=== PATIENT | female | born 1985 | race Caucasian/White ===

== ENCOUNTER → 2016-05-04 | Outpatient (CLI) | payer BC ==
[2016-05-04 10:54] LABS: CHLORIDE,CL 104 mmol/L (98-110); SODIUM,NA 138 mmol/L (136-146)
== END ==
LOC: MW.CHIM 10:16
PROVIDERS: ATTEND Internal Medicine
DX: E10.9 Type 1 diabetes mellitus without complications (principal); E03.9 Hypothyroidism, unspecified
CPT/HCPCS: 36415; 80048; 80061; 83036; 84443; 85025

== ENCOUNTER → 2016-07-19 | Outpatient (CLI) | payer BC | LOC: MW.CHOBGYN 14:42 | PROVIDERS: ATTEND Advanced Practice Midwife | DX: Z32.00 Encounter for pregnancy test, result unknown (principal) | CPT/HCPCS: 36415; 84702 ==

== ENCOUNTER 2016-09-30 18:38 | Emergency (ER) | payer BC ==
--- NOTE | 2016-09-30 19:37 | EDM.PDOC ---
ED HPI GENERAL MEDICAL PROBLEM - General Chief Complaint: Upper Extremity Injury/Pain Stated Complaint: PT HURT LT WRIST Time Seen by Provider: 09/30/16 18:59 Source of Information: Reports: Patient History Limitations: Reports: No Limitations - History of Present Illness INITIAL COMMENTS - FREE TEXT/NARRATIVE: HISTORY AND PHYSICAL: [] 30-year-old female presenting with pain to her left hand and wrist History of Present Illness: []She fell today and landed on her left hand. She is having enough pain that is not resolving. She is 16 weeks . Denies any loss of consciousness or other areas of pain. Review of Systems: As per history of present illness and below otherwise all systems reviewed and negative. Past medical history: As per history of present illness and as reviewed below otherwise noncontributory. Surgical history: As per history of present illness and as reviewed below otherwise noncontributory. Social history: No reported history of drug or alcohol abuse. Family history: As per history of present illness and as reviewed below otherwise noncontributory. Physical exam: Alert and oriented female in no loss of consciousness answering questions appropriately. HEENT: Atraumatic, normocehpalic, pupils reactive, negative for conjunctival pallor or scleral icterus, mucous membranes moist, throat clear, neck supple, nontender, trachea midline. Lungs: Clear to auscultation, breath sounds equal bilaterally, chest non tender. Heart: S1S2, regular, negative for clicks, rubs, or JVD. Abdomen: Soft, nondistended, nontender. Negative for masses or hepatossplenmegaly. Negative for costovertebral tenderness. 16 weeks with heart tones of 160 Pelvis: Stable nontender. Genitourinary: Deferred. Rectal: Deferred Extremities: Atraumatic, negative for cords or calf pain. Pain noted to the fifth meta-carpal/phalanx of the left hand. x-ray showing minimally displaced fracture to the fifth phalanx Neurovascular unremarkable. Neuro: Awake, alert, oriented. Cranial nerves II through XII unremarkable. Cerebellum unremarkable. Motor and sensory unremarkable throughout. Exam nonfocal. Diagnostics: [X-ray of left hand shows minimally displaced distal phalanx fracture] Therapeutics: [Splint] Impression: [Closed Fracture fifth finger] Plan: [Splint Tylenol for discomfort Follow-up with Dr. Astrid Frias next week] Definitive disposition and diagnosis as appropriate pending reevaluation and review of above. Onset: Today, Sudden Duration: Minutes: Location: Reports: Upper Extremity, Right Quality: Reports: Ache, Throbbing Severity: Moderate Improves with: Reports: None Worsens with: Reports: None Left Hand Pain Score (Numeric/FACES): 4 - Related Data Allergies Allergy/AdvReac Type Severity Reaction Status Date / Time amoxicillin [From Augmentin] Allergy Rash Verified 09/30/16 19:02 clavulanic acid Allergy Rash Verified 09/30/16 19:02 [From Augmentin] Home Meds: Home Meds Acetaminophen [Tylenol] 500 mg PO DAILY 09/30/16 [History] FLUoxetine [PROzac] 20 mg PO DAILY 09/30/16 [History] Insulin Lispro [Humalog] 09/30/16 [History] Levothyroxine 112 mcg PO ACBREAKFAST 09/30/16 [History] Magnesium 40 mg PO DAILY 09/30/16 [History] Ondansetron [Zofran ODT] 4 mg PO Q6H PRN 09/30/16 [History] Uzb340/FA/Omega3/Dha/Fish Oil [ Gummies] 1 each PO DAILY 09/30/16 [ History] Past Medical History PIN STICKER History: Reports: Endocrine/Metabolic History: Reports: Diabetes, Type I Social & Family History - Tobacco Use Smoking Status *Q: Never Smoker Second Hand Smoke Exposure: No - Caffeine Use Caffeine Use: Reports: Soda Caffeine Use Comment: 1 soda per day - Recreational Drug Use Recreational Drug Use: No Review of Systems - Review of Systems Review Of Systems: ROS reveals no pertinent complaints other than HPI. ED EXAM, GENERAL - Physical Exam Exam: See Below (Redictation) Course - Vital Signs Last Recorded V/S: Last Vital Signs Temp 36.8 C 09/30/16 18:55 Pulse 102 H 09/30/16 18:55 Resp 18 09/30/16 18:55 BP 138/92 H 09/30/16 18:55 Pulse Ox 98 09/30/16 18:55 - Orders/Labs/Meds Orders: Active Orders 24 hr Category Date Time Status Hand Comp Min 3V Lt [CR] Stat Exams 09/30/16 18:42 Taken Departure - Departure Time of Disposition: 19:39 Disposition: Home, Self-Care 01 Condition: Good Clinical Impression: Fracture, finger, distal phalanx Qualifiers: Encounter type: initial encounter Finger: little finger Fracture type: closed Fracture alignment: displaced Laterality: left Qualified Code(s): S62.637A - Displaced fracture of distal phalanx of left little finger, initial encounter for closed fracture - Discharge Information Instructions: Cast or Splint Care, [id number], Finger Fracture, [id number] Referrals: PCP,None [Primary Care Provider] - Renee Frias MD [Physician] - Forms: ED Department Discharge Additional Instructions: The following information is given to patients seen in the emergency department who are being discharged to home. This information is to outline your options for follow-up care. We provide all patients seen in our emergency department with a follow-up referral. The need for follow-up, as well as the timing and circumstances, are variable depending upon the specifics of your emergency department visit. If you don't have a primary care physician on staff, we will provide you with a referral. We always advise you to contact your personal physician following an emergency department visit to inform them of the circumstance of the visit and for follow-up with them and/or the need for any referrals to a consulting specialist. The emergency department will also refer you to a specialist when appropriate. This referral assures that you have the opportunity for followup care with a specialist. All of these measure are taken in an effort to provide you with optimal care, which includes your followup. Under all circumstances we always encourage you to contact your private physician who remains a resource for coordinating your care. When calling for followup care, please make the office aware that this follow-up is from your recent emergency room visit. If for any reason you are refused follow-up, please contact the [facility] emergency department at and asked to speak to the emergency department charge nurse. Keep splint on Tylenol for discomfort Elevate and ice Referral has been made to Dr. Astrid Frias [facility] - Plastic Surgery Professional Building [address] [place] [address], [address] [place] [address] - My Orders Last 24 Hours: My Active Orders 09/30/16 18:42 Hand Comp Min 3V Lt [CR] Stat - Assessment/Plan Last 24 Hours: My Active Orders 09/30/16 18:42 Hand Comp Min 3V Lt [CR] Stat
[2016-10-01 03:34] VITALS: BP 122/72
--- NOTE | 2016-10-01 18:02 | CR ---
.EXAM DATE: 09/30/16 PATIENT'S AGE: 30 Patient: PERICO HADLEY Facility: [place], [place] Site . Site : 1985 Study: XRay Extremity Left [id number] hand-09/30/2016 7:11:00 PM Ordering Physician: Doctor Kaiser Final Report: Indication: Pain after fall Technique: Three views left hand Comparison: None Findings: Bones: Minimally displaced transverse fracture of the distal left 5th proximal phalanx. Mild volar and lateral displacement of the distal fracture fragment. Joint spaces: Unremarkable. Soft tissues: Unremarkable. Impression: Minimally displaced transverse fracture of the distal left 5th proximal phalanx. Dictated by Marla Bentley MD @ Sep 30 2016 7:23PM (Electronic Signature) Report Signed by Proxy. MARIELLA
== END 2016-09-30 19:50 | disposition home or self-care (01) ==
LOC: MW.ED 18:38
DX: O9A.212 Injury, poisoning and certain other consequences of external causes complicating pregnancy, second trimester (principal); S62.637A Displaced fracture of distal phalanx of left little finger, initial encounter for closed fracture; O24.012 Pre-existing type 1 diabetes mellitus, in pregnancy, second trimester; E10.9 Type 1 diabetes mellitus without complications; Z79.899 Other long term (current) drug therapy; Z88.1 Allergy status to other antibiotic agents; Z3A.16 16 weeks gestation of pregnancy; W19.XXXA Unspecified fall, initial encounter
CPT/HCPCS: 73130-26-LT; 73130-LT; 99282; 99283

== ENCOUNTER 2016-10-06 06:31 | Day surgery (SDC) | payer BC ==
[2016-10-06] MEDS ORDERED: Acetaminophen/HYDROcodone 325-5 MG Tab PO PRN (07:00)
[2016-10-06] MEDS ORDERED: Bupivacaine 0.25%/EPINEPHrine 1:200,000 10 ML SDV INJECT ONE (07:00)
[2016-10-06] MEDS ORDERED: Lactated Ringers 1,000 ML IV SCH (07:00)
--- NOTE | 2016-10-06 07:16 | PCM.PREANE ---
Preanesthetic Assessment - Anesthesia/Transfusion/Family Hx Anesthesia History: Prior Anesthesia Without Reaction Family History of Anesthesia Reaction: No Transfusion History: Prior Transfusion Without Reaction Intubation History: Unknown - Review of Systems General: No Symptoms Pulmonary: No Symptoms Cardiovascular: No Symptoms Gastrointestinal: No Symptoms Neurological: No Symptoms Other: Reports: None - Physical Assessment Height: 1.68 m Weight: 84.822 kg ASA Class: 2 Mental Status: Alert & Oriented x3 Airway Class: Mallampati = 2 Dentition: Reports: Normal Dentition, Broken Tooth/Teeth (bottom front) Thyro-Mental Finger Breadths: 3 Mouth Opening Finger Breadths: 3 ROM/Head Extension: Full Lungs: Clear to Auscultation, Normal Respiratory Effort Cardiovascular: Regular Rate, Regular Rhythm - Allergies Allergies/Adverse Reactions: Allergies Allergy/AdvReac Type Severity Reaction Status Date / Time amoxicillin [From Augmentin] Allergy Rash Verified 09/30/16 19:02 clavulanic acid Allergy Rash Verified 09/30/16 19:02 [From Augmentin] - Blood Blood Available: No - Anesthesia Plan Pre-Op Medication Ordered: None - Acknowledgements Anesthesia Type Planned: MAC (general anesthesia back-up) Pt an Appropriate Candidate for the Planned Anesthesia: Yes Alternatives and Risks of Anesthesia Discussed w Pt/Guardian: Yes Pt/Guardian Understands and Agrees with Anesthesia Plan: Yes PreAnesthesia Questionnaire Other HEENT History: wears glasses Cardiovascular History: Reports: None Respiratory History: Reports: None Gastrointestinal History: Reports: GERD Other Gastrointestinal History: with Genitourinary History: Reports: None [employer] History: Reports: (16 weeks ) Musculoskeletal History: Reports: Fracture Other Musculoskeletal History: hx of fx arm Neurological History: Reports: Concussion Psychiatric History: Reports: Depression Endocrine/Metabolic History: Reports: Diabetes, Type I, Hypothyroidism, Obesity/ BMI 30+ Hematologic History: Reports: Blood Transfusion(s) Immunologic History: Reports: None Oncologic (Cancer) History: Reports: None Dermatologic History: Reports: None - Past Surgical History Head Surgeries/Procedures: Reports: None Female Surgical History: Reports: Section, Dilitation & Evacuation - SUBSTANCE USE Smoking Status *Q: Never Smoker Second Hand Smoke Exposure: No Recreational Drug Use History: No - HOME MEDS Home Medications: Home Meds FLUoxetine [PROzac] 40 mg PO DAILY 09/30/16 [History] Insulin Lispro [Humalog] 09/30/16 [History] Levothyroxine 112 mcg PO ACBREAKFAST 09/30/16 [History] Ondansetron [Zofran ODT] 4 mg PO Q6H PRN 09/30/16 [History] Lsg573/FA/Omega3/Dha/Fish Oil [ Gummies] 1 each PO DAILY 09/30/16 [ History] - CURRENT (IN HOUSE) MEDS Current Meds: Current Medications Hydrocodone Bitart/Acetaminophen ([place] 325-5 Mg) 1 tab PO Q4H PRN PRN Reason: Pain Lactated Ringer's (Ringers, Lactated) 1,000 mls @ 125 mls/hr IV ASDIRECTED MARY Last Admin: 10/06/16 07:05 Dose: 125 mls/hr Discontinued Medications Bupivacaine HCl/Epinephrine Bitart (Marcaine 0.25%/Epinephrine 1:200,000) 20 ml INJECT ONETIME ONE Stop: 10/06/16 07:01
[2016-10-06] MEDS ORDERED: Bupivacaine 0.25%/EPINEPHrine 1:200,000 10 ML SDV ONE (07:25)
[2016-10-06] MEDS ORDERED: Lidocaine 2% 5 ML SDV ONE (07:34)
[2016-10-06] MEDS ORDERED: Propofol 200 MG/20 ML SDV ONE (07:34)
[2016-10-06] MEDS ORDERED: Sodium Chloride 0.9% 20 ML ONE (07:35)
[2016-10-06 07:57] VITALS: BP 111/73
--- NOTE | 2016-10-06 09:12 | PCM48HPAN ---
Post Anesthesia Note - EVALUATION WITHIN 48HRS OF ANESTHETIC Vital Signs in Normal Range: Yes Patient Participated in Evaluation: Yes Respiratory Function Stable: Yes Airway Patent: Yes Cardiovascular Function Stable: Yes Hydration Status Stable: Yes Pain Control Satisfactory: Yes Nausea and Vomiting Control Satisfactory: Yes Mental Status Recovered: Yes - COMMENTS/OBSERVATIONS Free Text/Narrative:: No anesthesia problems. Patient skipped recovery room phase of postoperative care. Babies heart rate 130/min. postop Ready to go home..
--- NOTE | 2016-10-06 16:23 | CR ---
EXAMINATION: Left hand HISTORY: Fracture COMPARISON: 09/30/2016 TECHNIQUE: 4 fluoroscopic images provided FINDINGS/IMPRESSION: Operative control films demonstrate 2 pins fixating a fracture of the distal as pect of the proximal fifth phalanx.
--- NOTE | 2016-10-07 16:44 | PCM.OPNOTE ---
- General Post-Op/Procedure Note Date of Surgery/Procedure: 10/06/16 Operative Procedure(s): closed reduction pin fixation of left small finger proximal phalanx fracture Pre Op Diagnosis: left small finger proximal phalanx fracture Post-Op Diagnosis: Same Anesthesia Technique: Local, MAC Primary Surgeon: Renee Frias Armhole Sewer: Marla Serrato Complications: None Condition: Good Free Text/Narrative:: post surgery heart tones within normal limits.
--- NOTE | 2016-10-07 21:31 | OR ---
SURGEON: MARÍA VARGAS MD DATE OF PROCEDURE: 10/06/2016 PREOPERATIVE DIAGNOSIS: Left small finger proximal phalanx fracture. POSTOPERATIVE DIAGNOSIS: Left small finger proximal phalanx fracture. PROCEDURE: Closed reduction pin fixation of left small finger proximal phalanx transverse fracture. CABLE SPLICER: Marla Serrato. ANESTHESIA: Local MAC. INDICATIONS: Ms. Lopez is a 30-year-old female who unfortunately sustained a fracture to her left small finger, proximal phalanx fracture. She was seen in the emergency room and is 16 weeks . She does suffer from some hyperemesis. We discussed options and management. My recommendation is close reduction and pin fixation. We can do this under straight local and I have discussed with the anesthesiologist the risks and benefits of proceeding with some medications to keep her comfortable. We will choose to use sufentanyl due to the well tolerated nature. We will avoid other medications. Risks and benefits of this were discussed with her thoroughly and she was in agreement to proceed. Risks were including, but not limited to, bleeding, infection, damage to underlying or overlying structures, possible need for future interventions, possible scarring, and possible risks to the fetus. She understands and would like to proceed. PROCEDURE IN DETAIL: After informed consent was obtained and placed on the chart, the patient brought to the operating theater and laid in supine position. After adequate local MAC anesthetic was obtained, the area was prepped and draped and a time-out was completed to confirm side and site. 0.25% Marcaine with epinephrine was used in a digital block after time-out to confirm side and site. Once adequately completed, attention was then paid to reduction and pin fixation using 0.35 K- wires in a crossed fashion. Once adequately fixated, these were trimmed and Jurgan balls were placed. She tolerated this well and fluoroscopic exam was used to confirm positioning. Post and pre-surgery heart tones were within normal limits and the patient was well protected with lead during fluoroscopic examination. FOLLOWUP INSTRUCTIONS: The patient will see us in clinic in approximately 2 weeks, sooner if any problems, questions, or concerns. ANTONIO / NENA /[id number] MTDMarcia
== END 2016-10-06 09:10 | disposition home or self-care (01) ==
LOC: MW.SDS 06:31
PROVIDERS: ATTEND Plastic Surgery
DX: S62.617A Displaced fracture of proximal phalanx of left little finger, initial encounter for closed fracture (principal); F41.8 Other specified anxiety disorders; E03.9 Hypothyroidism, unspecified; E10.9 Type 1 diabetes mellitus without complications; Z88.1 Allergy status to other antibiotic agents; Z79.899 Other long term (current) drug therapy; Z98.890 Other specified postprocedural states
CPT/HCPCS: 26725; 76000; J7120; 01820; J2704

== ENCOUNTER 2017-03-17 04:45 | Inpatient (IN) | payer BC ==
[2017-03-17] MEDS ORDERED: Sodium Chloride 0.9% 2.5 ML Syringe FLUSH PRN (04:56)
[2017-03-17] MEDS ORDERED: Sodium Chloride 0.9% 10 ML Syringe FLUSH PRN (04:56)
[2017-03-17] MEDS ORDERED: Oxytocin/0.9 % Sodium Chloride 30 UNIT/500 ML BAG IV SCH (05:00)
[2017-03-17] MEDS ORDERED: Citric Acid/Sodium Citrate Solution 30 ML Cup PO SCH (05:00)
[2017-03-17] MEDS: Lactated Ringers 1,000 ML IV SCH ×3 (06:07→07:46)
[2017-03-17] MEDS ORDERED: Morphine PF 1 MG/ML Amp ONE (07:21)
[2017-03-17] MEDS ORDERED: Nalbuphine 10 MG/1 ML Vial ONE ×2 (07:24→07:25)
[2017-03-17] MEDS ORDERED: Oxytocin 10 Units/1 ML SDV ONE ×2 (07:24→07:25)
[2017-03-17] MEDS ORDERED: ePHEDrine 50 MG/ML SDV ONE ×2 (07:24→07:25)
[2017-03-17] MEDS ORDERED: ceFAZolin 1 GM Vial ONE (07:25)
[2017-03-17] MEDS ORDERED: Ondansetron 4 MG/2 ML SDV ONE (07:25)
[2017-03-17] MEDS ORDERED: Dexamethasone 4 MG/ML 5 ML MDV ONE (07:25)
[2017-03-17] MEDS ORDERED: Octyl 2-Cyanoacrylate 1 Tube ONE (07:29)
--- NOTE | 2017-03-17 07:45 | PCM.PREANE ---
Preanesthetic Assessment - Anesthesia/Transfusion/Family Hx Anesthesia History: Prior Anesthesia Without Reaction Other Type of Anesthesia Reaction Comment: BP dropped during last c/section Family History of Anesthesia Reaction: No Transfusion History: Prior Transfusion Without Reaction Intubation History: Unknown - Review of Systems General: No Symptoms Pulmonary: No Symptoms Cardiovascular: No Symptoms Gastrointestinal: No Symptoms Neurological: No Symptoms Other: Reports: None - Physical Assessment NPO Status Date: 03/16/17 Height: 1.68 m Weight: 90.718 kg ASA Class: 3 Mental Status: Alert & Oriented x3 Airway Class: Mallampati = 2 Dentition: Reports: Normal Dentition ROM/Head Extension: Full Lungs: Clear to Auscultation, Normal Respiratory Effort Cardiovascular: Regular Rate, Regular Rhythm - Lab Values: Laboratory Last Values WBC 11.40 K/uL (4.0-11.0) H 03/17/17 05:55 RBC 4.13 M/uL (4.30-5.90) L 03/17/17 05:55 Hgb 11.1 g/dL (12.0-16.0) L 03/17/17 05:55 Hct 34.2 % (36.0-46.0) L 03/17/17 05:55 MCV 82.8 fL (80.0-98.0) 03/17/17 05:55 MCH 26.9 pg (27.0-32.0) L 03/17/17 05:55 MCHC 32.5 g/dL (31.0-37.0) 03/17/17 05:55 RDW Std Deviation 47.0 fl (28.0-62.0) 03/17/17 05:55 RDW Coeff of Lavinia 16 % (11.0-15.0) H 03/17/17 05:55 Plt Count 194 K/uL (150-400) 03/17/17 05:55 MPV 12.80 fL (7.40-12.00) H 03/17/17 05:55 Nucleated RBC % 0.0 /100WBC 03/17/17 05:55 Nucleated RBCs # 0 K/uL 03/17/17 05:55 Blood Type O POSITIVE 03/17/17 05:55 Antibody Screen NEGATIVE 03/17/17 05:55 - Allergies Allergies/Adverse Reactions: Allergies Allergy/AdvReac Type Severity Reaction Status Date / Time amoxicillin [From Augmentin] Allergy Rash Verified 09/30/16 19:02 clavulanic acid Allergy Rash Verified 09/30/16 19:02 [From Augmentin] - Anesthesia Plan Pre-Op Medication Ordered: None - Acknowledgements Anesthesia Type Planned: Spinal Pt an Appropriate Candidate for the Planned Anesthesia: Yes Alternatives and Risks of Anesthesia Discussed w Pt/Guardian: Yes Pt/Guardian Understands and Agrees with Anesthesia Plan: Yes Additional Comments: PMH: DM type 1, on insulin pump. last glucose=90. pump will shut off if glucose drops to 70. PMH: also thyroid replacement. platelets this am = 194k PreAnesthesia Questionnaire HEENT History: Reports: Impaired Vision Other HEENT History: wears glasses Cardiovascular History: Reports: None Respiratory History: Reports: None Gastrointestinal History: Reports: GERD Other Gastrointestinal History: with Genitourinary History: Reports: None DIRECTOR OF SERVICES History: Reports: , Spontaneous Musculoskeletal History: Reports: Fracture Other Musculoskeletal History: hx of fx arm and fx pinkie finger left hand Neurological History: Reports: Concussion Psychiatric History: Reports: Depression Endocrine/Metabolic History: Reports: Diabetes, Type I, Hypothyroidism, Obesity/ BMI 30+ Hematologic History: Reports: Blood Transfusion(s) Immunologic History: Reports: None Oncologic (Cancer) History: Reports: None Dermatologic History: Reports: None - Past Surgical History Head Surgeries/Procedures: Reports: None HEENT Surgical History: Reports: None Female Surgical History: Reports: Section, Dilitation & Evacuation - SUBSTANCE USE Smoking Status *Q: Never Smoker Second Hand Smoke Exposure: No Recreational Drug Use History: No - HOME MEDS Home Medications: Home Meds FLUoxetine [PROzac] 40 mg PO DAILY 09/30/16 [History] Insulin Lispro [Humalog] 1 dose .ROUTE ASDIRECTED 09/30/16 [History] Levothyroxine 112 mcg PO ACBREAKFAST 09/30/16 [History] Pyp437/FA/Omega3/Dha/Fish Oil [ Gummies] 1 each PO DAILY 09/30/16 [ History] Iron Polysaccharides Complex [Ferrex 150] 1 tab PO DAILY 03/15/17 [History] valACYclovir [Valtrex] 500 mg PO BID 03/15/17 [History] - CURRENT (IN HOUSE) MEDS Current Meds: Current Medications Citric Acid/Sodium Citrate (Bicitra Solution) 30 ml PO .ONCE MARY Cefazolin Sodium/Dextrose 2 gm (/ Premix) 50 mls @ 100 mls/hr IV ONETIME ONE Stop: 03/17/17 08:29 Lactated Ringer's (Ringers, Lactated) 1,000 mls @ 500 mls/hr IV .BOLUS MARY Last Admin: 03/17/17 07:24 Dose: 500 mls/hr Oxytocin/Sodium Chloride (Oxytocin 30 Unit/500 Ml-Ns) 30 unit in 500 mls @ 250 mls/hr IV TITRATE MARY Sodium Chloride (Saline Flush) 10 ml FLUSH ASDIRECTED PRN PRN Reason: Keep Vein Open Sodium Chloride (Saline Flush) 2.5 ml FLUSH ASDIRECTED PRN PRN Reason: Keep Vein Open Discontinued Medications Cefazolin Sodium (Ancef) Confirm Administered Dose 2 gm .ROUTE .STK-MED ONE Stop: 03/17/17 07:26 Dexamethasone (Dexamethasone) Confirm Administered Dose 20 mg .ROUTE .ST-MED ONE Stop: 03/17/17 07:26 Ephedrine Sulfate (Ephedrine Sulfate) Confirm Administered Dose 50 mg .ROUTE .ST-MED ONE Stop: 03/17/17 07:25 Ephedrine Sulfate (Ephedrine Sulfate) Confirm Administered Dose 50 mg .ROUTE .ST-MED ONE Stop: 03/17/17 07:26 Morphine Sulfate (Duramorph Pf) Confirm Administered Dose 1 mg .ROUTE .STK-MED ONE Stop: 03/17/17 07:22 Nalbuphine HCl (Nubain) Confirm Administered Dose 10 mg .ROUTE .ST-MED ONE Stop: 03/17/17 07:25 Nalbuphine HCl (Nubain) Confirm Administered Dose 10 mg .ROUTE .ST-MED ONE Stop: 03/17/17 07:26 Octyl Cyanoacrylate (Dermabond Advance) Confirm Administered Dose 1 applic .ROUTE .ST-MED ONE Stop: 03/17/17 07:30 Ondansetron HCl (Zofran) Confirm Administered Dose 4 mg .ROUTE .STK-MED ONE Stop: 03/17/17 07:26 Oxytocin (Pitocin) Confirm Administered Dose 20 unit .ROUTE .STK-MED ONE Stop: 03/17/17 07:25 Oxytocin (Pitocin) Confirm Administered Dose 20 unit .ROUTE .STK-MED ONE Stop: 03/17/17 07:26
[2017-03-17] MEDS ORDERED: ceFAZolin 2 GM in Premix Bag 1 BAG IV ONE (08:00)
[2017-03-17] MEDS ORDERED: Methylergonovine 0.2 MG/1 ML Amp ONE (08:10)
[2017-03-17] MEDS ORDERED: Carboprost Tromethamine 250 MCG/1 ML Amp ONE (08:10)
[2017-03-17] MEDS ORDERED: Ketorolac 30 MG/ML SDV ONE (08:45)
[2017-03-17] MEDS ORDERED: Acetaminophen/oxyCODONE 325-5 MG Tab PO PRN (09:05)
[2017-03-17] MEDS ORDERED: Lanolin 100% Cream 7 GM Tube TOP PRN (09:05)
[2017-03-17] MEDS ORDERED: Bisacodyl 10 MG Supp RECTAL PRN (09:05)
[2017-03-17] MEDS ORDERED: Methylergonovine 0.2 MG/1 ML Amp IM PRN (09:05)
[2017-03-17] MEDS ORDERED: diphenhydrAMINE 50 MG/ML SDV IVPUSH PRN (09:05)
[2017-03-17] MEDS ORDERED: Ondansetron 4 MG/2 ML SDV IV PRN (09:05)
[2017-03-17] MEDS ORDERED: Lactated Ringers 1,000 ML IV SCH (09:15)
--- NOTE | 2017-03-17 09:25 | PCM.OPNOTE ---
- General Post-Op/Procedure Note Date of Surgery/Procedure: 03/17/17 Operative Procedure(s): repeat low transverse with bilateral salpingectomy Findings: normal appearing uterus, tubes and ovaries. Liveborn male 99 weight 5150 grams. Pre Op Diagnosis: 38 weeks IUP, Type I diabetes, polyhydramnios, macrosomia Post-Op Diagnosis: Same Anesthesia Technique: Spinal Primary Surgeon: Sonya Shah Anesthesia Provider: Cameron Solo Pathology: right fallopian tube, left fallopian tube. Fluid Replacement, Intraop: 1,500 Output, Urine Amount: 700 EBL in mLs: 500 Complications: None Condition: Good Free Text/Narrative:: Intake & Output 03/16/17 03/17/17 03/17/17 22:59 06:59 14:59 Output Total 700 Balance -700
--- NOTE | 2017-03-17 09:42 | PCM.POSTAN ---
POST ANESTHESIA ASSESSMENT - MENTAL STATUS Mental Status: Alert, Oriented - RESPIRATORY Respiratory Status: Respiratory Rate WNL, Airway Patent, O2 Saturation Stable - CARDIOVASCULAR CV Status: Pulse Rate WNL, Blood Pressure Stable - GASTROINTESTINAL GI Status: No Symptoms - POST OP HYDRATION Hydration Status: Adequate & Stable
[2017-03-17] MEDS: Ketorolac 30 MG/ML SDV IVPUSH SCH ×3 (10:38→21:24)
[2017-03-17] MEDS: Insulin Aspart 100 Units/ML 3 ML Pen SUBCUT SCH ×8 (10:41→23:35)
--- NOTE | 2017-03-17 12:04 | OR ---
SURGEON: Sonya Shah M.D. DATE OF PROCEDURE: 03/17/2017 PREOPERATIVE DIAGNOSES: A 38-week intrauterine ; type 1 diabetes; hypothyroidism; depression; prior section, desires repeat; desires permanent sterilization. POSTOPERATIVE DIAGNOSES: A 38-week intrauterine ; type 1 diabetes; hypothyroidism; depression; prior section, desires repeat; desires permanent sterilization. PROCEDURE: Repeat low transverse section with bilateral salpingectomy. ANESTHESIA: Spinal. ESTIMATED BLOOD LOSS: 500 mL. FLUIDS: 1500 mL of crystalloid. URINE OUTPUT: 700 mL. FINDINGS: Live-born male, score 9 and 9, weighing 5150 g. Normal-appearing uterus, tubes, and ovaries. COMPLICATIONS: None known. DISPOSITION: Mother is in recovery in good condition. Baby is in the nursery in good condition. BRIEF HISTORY: This is a 31-year-old female. She is G3, P0-1-1-1. She is currently at 38 weeks' gestation and presents for repeat section. She has had care complicated by type 1 diabetes. She has an insulin pump and has had excellent glucose control during the . Her most recent hemoglobin A1c was 6.6. She is managed with [facility]. She has received progesterone injections due to history of due to PPROM. 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 She has a history of depression and is doing well on fluoxetine. She requests permanent sterilization due to risks related to future pregnancies, related to her diabetes and recurrent macrosomia, and this was reviewed by the hospital ethics committee and was approved. Immediately prior to the surgery, I did confirm her desire for permanent sterilization by salpingectomy understanding that this is a reversible procedure and we discussed the risk of regret, but also decreased risk of ectopic compared to partial salpingectomy and decrease risk of failure as well as decreased risk of ovarian cancer. Understanding all these issues, she does desire to proceed. Surgical risks of C- section were discussed including bleeding, infection, injury to bowel, bladder, blood vessels, ureters or other organs, risk of thromboembolic event, and risk of anesthesia. Understanding all these risks, she does desire to proceed. DESCRIPTION OF PROCEDURE: With the patient in the left tilt position, under adequate spinal analgesia, the abdomen was prepped with chlorhexidine and draped in usual fashion for abdominal surgery. After documentation of adequate analgesia, an appropriate time-out was held. SCDs were in place. She had received 2 g of Ancef IV and a Moeller catheter was in place. An incision was made over the prior incision and carried through the subcutaneous tissue to the fascia, which was scored transversely in the midline. The fascial incision was extended using curved Horvath scissors. The fascia was elevated from the underlying rectus muscle using sharp and blunt dissection. The rectus muscles were in the midline using Metzenbaum scissors and a finger was used to enter the peritoneal cavity. This incision was extended using sharp and blunt dissection. The Cristi O retractor was placed. The visceroperitoneum over the lower uterine segment was incised to develop an adequate bladder flap and a transverse curvilinear incision was made over the lower uterine segment with a scalpel. A finger was used to enter the amniotic cavity. White meconium was noted and farm or ranch animal caretaker was notified of this. The head was delivered via the uterine incision with fundal pressure with subsequent delivery of the 's shoulders and body without any difficulty. The infant was bulb suctioned by nose and mouth. Cord was clamped x2 and cut and the was handed to Dr. Valle, who was in attendance at delivery. The is a liveborn male, score 9 and 9, weighing 5150 g. Cord blood was collected for cord ABGs as well as routine cord blood sampling. The placenta was removed by manual extraction. The uterus was cleaned with a dry laparotomy tape. The cervix was opened with a ring forceps. The uterine incision was closed with a running lock suture of 0 Polysorb followed by an imbricating layer of 0 Polysorb. The uterine incision was completely hemostatic. The pericolic gutters and posterior cul-de-sac were cleaned with a wet laparotomy tape. I did confirm with her again and desire for permanent sterilization. The left tube was grasped with a Avalon and using the Harmonic wave setting of 3 starting distally. The mesosalpinx was incised up to the proximal tube, which was then transected and sent for pathology. This was repeated on the right. The base of the mesosalpinx was then inspected. It was completely hemostatic. The uterine incision was again inspected. It was completely hemostatic. The uterus was firm. The Cristi O retractor was removed. The rectus muscle and peritoneum were loosely approximated in the midline using a running mattress suture of 0 Polysorb. The posterior aspect of the fascia was inspected. There was a small defect that had been made in the fascia near the apex of the incision in a cephalad position and this was reapproximated using a running suture of 0 Polysorb. The fascial incision was then closed with a running suture of 0 Polysorb. Subcutaneous tissue was irrigated. Any areas of bleeding that were noted were cauterized. The deep subcutaneous tissue was reapproximated using a running suture of 0 Polysorb. The skin was reapproximated using a running subcuticular suture of 2-0 Polysorb followed by skin glue. Final sponge, needle, and instrument counts were reported as correct. There were no known complications. in nursery in good condition. Mother is in LDRP in good condition. MADI BARRETT /[id number]
[2017-03-17] MEDS: Docusate Sodium 100 MG Cap PO SCH (21:26)
--- NOTE | 2017-03-17 21:55 | PCM48HPAN ---
Post Anesthesia Note - EVALUATION WITHIN 48HRS OF ANESTHETIC Vital Signs in Normal Range: Yes Patient Participated in Evaluation: Yes Respiratory Function Stable: Yes Airway Patent: Yes Cardiovascular Function Stable: Yes Hydration Status Stable: Yes Pain Control Satisfactory: Yes Nausea and Vomiting Control Satisfactory: Yes Mental Status Recovered: Yes
[2017-03-18] MEDS: Insulin Aspart 100 Units/ML 3 ML Pen SUBCUT SCH ×4 (01:45→15:15)
[2017-03-18] MEDS: Ketorolac 30 MG/ML SDV IVPUSH SCH ×2 (03:29→09:05)
[2017-03-18 05:31] LABS: CHLORIDE,CL 106 mmol/L (98-110); SODIUM,NA 136 mmol/L (136-146)
[2017-03-18] MEDS: Levothyroxine 112 MCG Tab PO SCH (07:39)
--- NOTE | 2017-03-18 08:03 | PCM.PNPP ---
- General Info Date of Service: 03/18/17 Functional Status: Reports: Pain Controlled, Tolerating Diet, Ambulating, Urinating - Review of Systems General: Reports: No Symptoms HEENT: Reports: No Symptoms Pulmonary: Reports: No Symptoms Cardiovascular: Reports: No Symptoms Gastrointestinal: Reports: No Symptoms Genitourinary: Reports: No Symptoms Musculoskeletal: Reports: No Symptoms Skin: Reports: No Symptoms Neurological: Reports: No Symptoms Psychiatric: Reports: No Symptoms - General Info Date of Service: 03/18/17 - Patient Data Vital Signs - Most Recent: Last Vital Signs Temp 36.6 C 03/18/17 05:00 Pulse 100 03/18/17 07:00 Resp 18 03/18/17 07:00 BP 108/73 03/18/17 01:00 Pulse Ox 96 03/18/17 07:00 Weight - Most Recent: 90.718 kg I&O - Last 24 Hours: Intake & Output 03/17/17 03/18/17 03/18/17 22:59 06:59 14:59 Intake Total 1500 Output Total 2100 Balance -600 Lab Results - Last 24 Hours: Laboratory Results - last 24 hr 03/17/17 03/18/17 03/18/17 Range/Units 09:24 04:52 04:52 Hgb 10.4 L (12.0-16.0) g/dL Hct 31.7 L (36.0-46.0) % Sodium 136 (136-146) mmol/L Potassium 4.3 (3.5-5.1) mmol/L Chloride 106 (98-110) mmol/L Carbon Dioxide 24 (21-31) mmol/L BUN 7 (6.0-23.0) mg/dL Creatinine 0.7 (0.6-1.5) mg/dL Est Cr Clr Drug Dosing 111.01 mL/min Estimated GFR (MDRD) > 60.0 ml/min Glucose 95 (60-110) mg/dL POC Glucose 109 (60-110) mg/dL Calcium 9.4 (8.8-10.8) mg/dL Med Orders - Current: Current Medications Bisacodyl (Dulcolax) 10 mg RECTAL .ONCE PRN PRN Reason: Constipation Diphenhydramine HCl (Benadryl) 25 mg IVPUSH Q6H PRN PRN Reason: Itching or Nausea Last Admin: 03/17/17 11:41 Dose: 25 mg Docusate Sodium (Colace) 100 mg PO BID [facility] Last Admin: 03/17/17 21:26 Dose: 100 mg Emollient Ointment (Lansinoh Hpa) 0 gm TOP ASDIRECTED PRN PRN Reason: Sore Nipples Fish Oil (Fish Oil) 1 gm PO DAILY [facility] Fluoxetine HCl (Prozac) 40 mg PO DAILY [facility] Lactated Ringer's (Ringers, Lactated) 1,000 mls @ 125 mls/hr IV ASDIRECTED [facility] Last Admin: 03/17/17 12:12 Dose: 125 mls/hr Ibuprofen (Motrin) 400 mg PO Q8H PRN PRN Reason: mild pain or fever Insulin Aspart (Novolog) 0 unit SUBCUT Q2H [facility] PRN Reason: Protocol Last Admin: 03/18/17 05:50 Dose: Not Given Ketorolac Tromethamine (Toradol) 15 mg IVPUSH Q6H [facility] Stop: 03/18/17 09:16 Last Admin: 03/18/17 03:29 Dose: 15 mg Levothyroxine Sodium (Levothyroxine) 112 mcg PO ACBREAKFAST [facility] Last Admin: 03/18/17 07:39 Dose: 112 mcg Methylergonovine Maleate (Methergine) 0.2 mg IM .ONCE PRN PRN Reason: Excessive Vaginal Bleeding Ondansetron HCl (Zofran) 4 mg IV Q4H PRN PRN Reason: Nausea/Vomiting Oxycodone/Acetaminophen (Percocet 325-5 Mg) 1 tab PO Q4H PRN PRN Reason: Pain (moderate 4-6) Oxycodone/Acetaminophen (Percocet 325-5 Mg) 2 tab PO Q4H PRN PRN Reason: Pain (moderate 4-6) Discontinued Medications Carboprost Tromethamine (Hemabate Ds) Confirm Administered Dose 250 mcg .ROUTE .STK-MED ONE Stop: 03/17/17 08:11 Cefazolin Sodium (Ancef) Confirm Administered Dose 2 gm .ROUTE .STK-MED ONE Stop: 03/17/17 07:26 Citric Acid/Sodium Citrate (Bicitra Solution) 30 ml PO .ONCE [facility] Dexamethasone (Dexamethasone) Confirm Administered Dose 20 mg .ROUTE .STK-MED ONE Stop: 03/17/17 07:26 Ephedrine Sulfate (Ephedrine Sulfate) Confirm Administered Dose 50 mg .ROUTE .ST-MED ONE Stop: 03/17/17 07:25 Ephedrine Sulfate (Ephedrine Sulfate) Confirm Administered Dose 50 mg .ROUTE .ST-MED ONE Stop: 03/17/17 07:26 Cefazolin Sodium/Dextrose 2 gm (/ Premix) 50 mls @ 100 mls/hr IV ONETIME ONE Stop: 03/17/17 08:29 Lactated Ringer's (Ringers, Lactated) 1,000 mls @ 500 mls/hr IV .BOLUS [facility] Last Admin: 03/17/17 07:46 Dose: 999 mls/hr Oxytocin/Sodium Chloride (Oxytocin 30 Unit/500 Ml-Ns) 30 unit in 500 mls @ 250 mls/hr IV TITRATE [facility] Ketorolac Tromethamine (Toradol) Confirm Administered Dose 30 mg .ROUTE .[facility] Stop: 03/17/17 08:46 Methylergonovine Maleate (Methergine) Confirm Administered Dose 0.2 mg .ROUTE .[facility] Stop: 03/17/17 08:11 Morphine Sulfate (Duramorph Pf) Confirm Administered Dose 1 mg .ROUTE .[facility] ONE Stop: 03/17/17 07:22 Nalbuphine HCl (Nubain) Confirm Administered Dose 10 mg .ROUTE .[facility]-MED ONE Stop: 03/17/17 07:25 Nalbuphine HCl (Nubain) Confirm Administered Dose 10 mg .ROUTE .[facility] Stop: 03/17/17 07:26 Octyl Cyanoacrylate (Dermabond Advance) Confirm Administered Dose 1 applic .ROUTE .[facility] Stop: 03/17/17 07:30 Ondansetron HCl (Zofran) Confirm Administered Dose 4 mg .ROUTE .[facility] Stop: 03/17/17 07:26 Oxytocin (Pitocin) Confirm Administered Dose 20 unit .ROUTE .ST-MED ONE Stop: 03/17/17 07:25 Oxytocin (Pitocin) Confirm Administered Dose 20 unit .ROUTE .ST-MED ONE Stop: 03/17/17 07:26 Sodium Chloride (Saline Flush) 10 ml FLUSH ASDIRECTED PRN PRN Reason: Keep Vein Open Sodium Chloride (Saline Flush) 2.5 ml FLUSH ASDIRECTED PRN PRN Reason: Keep Vein Open - Interaction Disposition, : [place] in Room with Family Interaction: Holding Infant Feeding: Breastfed ; Nursed Well Support Person: - Recovery Exam Fundal Tone: Firm Fundal Level: 1 Fingerbreadths Below Umbilicus Fundal Placement: Midline Lochia Amount: Scant Lochia Color: Rubra/Red Perineum Description: Intact, Minimal Bruising/Swelling Bladder Status: Indwelling Catheter in Place Urinary Elimination: Indwelling Catheter - Exam General: Alert, Oriented HEENT: Pupils Equal Neck: Supple Lungs: Clear to Auscultation, Normal Respiratory Effort Cardiovascular: Regular Rate, Regular Rhythm GI/Abdominal Exam: Normal Bowel Sounds, Soft, Non-Tender, No Organomegaly, No Distention Extremities: Normal Inspection, Normal Range of Motion, Non-Tender, No Pedal Edema Skin: Warm, Dry, Intact Wound/Incisions: Healing Well Neurological: No New Focal Deficit Psy/Mental Status: Alert, Normal Affect, Normal Mood - Problem List Review Problem List Initiated/Reviewed/Updated: Yes - My Orders Last 24 Hours: My Active Orders 03/17/17 09:05 Patient Status [ADT] Routine Ambulate [RC] PER UNIT ROUTINE Communication Order [RC] PER UNIT ROUTINE Communication Order [RC] PER UNIT ROUTINE Communication Order [RC] Per Unit Routine May Shower [RC] ASDIRECTED Notify Provider Intake and Out [RC] ASDIRECTED Notify Provider Vital Signs [RC] ASDIRECTED RT Incentive Spirometry [RC] Q2HWA Acetaminophen/oxyCODONE [Percocet 325-5 MG] 1 tab PO Q4H PRN Acetaminophen/oxyCODONE [Percocet 325-5 MG] 2 tab PO Q4H PRN Bisacodyl [Dulcolax] 10 mg RECTAL .ONCE PRN Lanolin [Lansinoh HPA] See Dose Instructions TOP ASDIRECTED PRN Methylergonovine [Methergine] 0.2 mg IM .ONCE PRN Ondansetron [Zofran] 4 mg IV Q4H PRN diphenhydrAMINE [Benadryl] 25 mg IVPUSH Q6H PRN Abdominal Binder [OM.PC] Routine Assess Lochia [WOMSER] Per Unit Routine Assess Uterine Involution [WOMSER] Per Unit Routine Breast Pump [WOMSER] Per Unit Routine Peripheral IV Discontinue [OM.PC] Routine Sequential Compression Device [OM.PC] Per Unit Routine Resuscitation Status Routine 03/17/17 09:06 Antiembolic Devices [RC] PER UNIT ROUTINE 03/17/17 09:07 Intake and Output [RC] Q12H 03/17/17 09:14 Blood Glucose Check, Bedside [RC] Q2HR 03/17/17 09:15 Pump Management, Insulin [RC] ASDIRECTED Insulin Aspart [NovoLOG] See Protocol SUBCUT Q2H Ketorolac [Toradol] 15 mg IVPUSH Q6H Lactated Ringers [Ringers, Lactated] 1,000 ml IV ASDIRECTED 03/17/17 21:00 Docusate Sodium [Colace] 100 mg PO BID 03/17/17 Dinner Consistent Carbohydrate Diet [DIET] 03/18/17 07:30 Levothyroxine 112 mcg PO ACBREAKFAST 03/18/17 09:00 FLUoxetine [PROzac] 40 mg PO DAILY Fish Oil/Yoder-3 Fatty Acids [Fish Oil] 1 gm PO DAILY 03/18/17 15:00 Ibuprofen [Motrin] 400 mg PO Q8H PRN - Assessment Assessment:: POD#1 after repeat , type I diabetes. Pump management with [facility] has provided new settings for pump. vitals stable hemoglobin stable. - Plan Plan:: Discontinue sliding scale insulin, may resume pump management with diabetes office. Ambulate, remove IV anticipate discharge in am.
[2017-03-18] MEDS ORDERED: Fish Oil/Omega-3 Fatty Acids 1 Gm Cap PO SCH (09:00)
[2017-03-18] MEDS: Docusate Sodium 100 MG Cap PO SCH ×2 (09:05→21:56)
[2017-03-18] MEDS: FLUoxetine 20 MG Cap PO SCH (09:23)
[2017-03-18] MEDS: Acetaminophen/oxyCODONE 325-5 MG Tab PO PRN (21:57)
[2017-03-18] MEDS: Ibuprofen 400 MG Tab PO PRN (21:59)
[2017-03-19] MEDS: Acetaminophen/oxyCODONE 325-5 MG Tab PO PRN ×2 (05:47→11:13)
[2017-03-19] MEDS: Ibuprofen 400 MG Tab PO PRN ×2 (05:48→11:14)
[2017-03-19] MEDS: FLUoxetine 20 MG Cap PO SCH (09:32)
[2017-03-19] MEDS: Docusate Sodium 100 MG Cap PO SCH (09:32)
[2017-03-19] MEDS: Levothyroxine 112 MCG Tab PO SCH (09:32)
--- NOTE | 2017-03-19 09:57 | PCM.PNPP ---
- General Info Date of Service: 03/19/17 Functional Status: Reports: Pain Controlled, Tolerating Diet, Ambulating, Urinating, Other (glucose readings have been normal, she is comfortable with her current insulin settings and has been in contact with [facility] diabetes management.) - Review of Systems General: Reports: No Symptoms HEENT: Reports: No Symptoms Pulmonary: Reports: No Symptoms Cardiovascular: Reports: No Symptoms Gastrointestinal: Reports: No Symptoms Genitourinary: Reports: No Symptoms Musculoskeletal: Reports: No Symptoms Skin: Reports: No Symptoms Neurological: Reports: No Symptoms Psychiatric: Reports: No Symptoms - Patient Data Vital Signs - Most Recent: Last Vital Signs Temp 36.7 C 03/19/17 06:51 Pulse 87 03/19/17 06:51 Resp 16 03/19/17 06:51 BP 116/73 03/19/17 06:51 Pulse Ox 98 03/19/17 06:51 Weight - Most Recent: 90.718 kg Med Orders - Current: Current Medications Bisacodyl (Dulcolax) 10 mg RECTAL .ONCE PRN PRN Reason: Constipation Diphenhydramine HCl (Benadryl) 25 mg IVPUSH Q6H PRN PRN Reason: Itching or Nausea Last Admin: 03/17/17 11:41 Dose: 25 mg Docusate Sodium (Colace) 100 mg PO BID [facility] Last Admin: 03/19/17 09:32 Dose: 100 mg Emollient Ointment (Lansinoh Hpa) 0 gm TOP ASDIRECTED PRN PRN Reason: Sore Nipples Fluoxetine HCl (Prozac) 40 mg PO DAILY [facility] Last Admin: 03/19/17 09:32 Dose: 40 mg Lactated Ringer's (Ringers, Lactated) 1,000 mls @ 125 mls/hr IV ASDIRECTED [facility] Last Admin: 03/17/17 12:12 Dose: 125 mls/hr Ibuprofen (Motrin) 400 mg PO Q8H PRN PRN Reason: mild pain or fever Last Admin: 03/19/17 05:48 Dose: 400 mg Levothyroxine Sodium (Levothyroxine) 112 mcg PO ACBREAKFAST [facility] Last Admin: 03/19/17 09:32 Dose: 112 mcg Methylergonovine Maleate (Methergine) 0.2 mg IM .ONCE PRN PRN Reason: Excessive Vaginal Bleeding Ondansetron HCl (Zofran) 4 mg IV Q4H PRN PRN Reason: Nausea/Vomiting Oxycodone/Acetaminophen (Percocet 325-5 Mg) 1 tab PO Q4H PRN PRN Reason: Pain (moderate 4-6) Last Admin: 03/19/17 05:47 Dose: 1 tab Oxycodone/Acetaminophen (Percocet 325-5 Mg) 2 tab PO Q4H PRN PRN Reason: Pain (moderate 4-6) Last Admin: 03/18/17 16:16 Dose: 2 tab Discontinued Medications Carboprost Tromethamine (Hemabate Ds) Confirm Administered Dose 250 mcg .ROUTE .STK-MED ONE Stop: 03/17/17 08:11 Cefazolin Sodium (Ancef) Confirm Administered Dose 2 gm .ROUTE .STK-MED ONE Stop: 03/17/17 07:26 Citric Acid/Sodium Citrate (Bicitra Solution) 30 ml PO .ONCE [facility] Dexamethasone (Dexamethasone) Confirm Administered Dose 20 mg .ROUTE .STK-MED ONE Stop: 03/17/17 07:26 Ephedrine Sulfate (Ephedrine Sulfate) Confirm Administered Dose 50 mg .ROUTE .STK-MED ONE Stop: 03/17/17 07:25 Ephedrine Sulfate (Ephedrine Sulfate) Confirm Administered Dose 50 mg .ROUTE .STK-MED ONE Stop: 03/17/17 07:26 Fish Oil (Fish Oil) 1 gm PO DAILY [facility] Cefazolin Sodium/Dextrose 2 gm (/ Premix) 50 mls @ 100 mls/hr IV ONETIME ONE Stop: 03/17/17 08:29 Lactated Ringer's (Ringers, Lactated) 1,000 mls @ 500 mls/hr IV .BOLUS [facility] Last Admin: 03/17/17 07:46 Dose: 999 mls/hr Oxytocin/Sodium Chloride (Oxytocin 30 Unit/500 Ml-Ns) 30 unit in 500 mls @ 250 mls/hr IV TITRATE MARY Insulin Aspart (Novolog) 0 unit SUBCUT Q2H [facility] PRN Reason: Protocol Last Admin: 03/18/17 15:15 Dose: Not Given Ketorolac Tromethamine (Toradol) Confirm Administered Dose 30 mg .ROUTE .STK- MED ONE Stop: 03/17/17 08:46 Ketorolac Tromethamine (Toradol) 15 mg IVPUSH Q6H [facility] Stop: 03/18/17 09:16 Last Admin: 03/18/17 09:05 Dose: 15 mg Methylergonovine Maleate (Methergine) Confirm Administered Dose 0.2 mg .ROUTE .STK-MED ONE Stop: 03/17/17 08:11 Morphine Sulfate (Duramorph Pf) Confirm Administered Dose 1 mg .ROUTE .STK-MED ONE Stop: 03/17/17 07:22 Nalbuphine HCl (Nubain) Confirm Administered Dose 10 mg .ROUTE .STK-MED ONE Stop: 03/17/17 07:25 Nalbuphine HCl (Nubain) Confirm Administered Dose 10 mg .ROUTE .STK-MED ONE Stop: 03/17/17 07:26 Octyl Cyanoacrylate (Dermabond Advance) Confirm Administered Dose 1 applic .ROUTE .STK-MED ONE Stop: 03/17/17 07:30 Ondansetron HCl (Zofran) Confirm Administered Dose 4 mg .ROUTE .STK-MED ONE Stop: 03/17/17 07:26 Oxytocin (Pitocin) Confirm Administered Dose 20 unit .ROUTE .STK-MED ONE Stop: 03/17/17 07:25 Oxytocin (Pitocin) Confirm Administered Dose 20 unit .ROUTE .STK-MED ONE Stop: 03/17/17 07:26 Sodium Chloride (Saline Flush) 10 ml FLUSH ASDIRECTED PRN PRN Reason: Keep Vein Open Sodium Chloride (Saline Flush) 2.5 ml FLUSH ASDIRECTED PRN PRN Reason: Keep Vein Open - Infant Interaction Infant Disposition, : in Room with Family Infant Interaction: Holding Infant Feeding: Breastfed Infant; Nursed Well Support Person: - Recovery Exam Fundal Tone: Firm Fundal Level: 2 Fingerbreadths Below Umbilicus Fundal Placement: Midline Lochia Amount: Scant Lochia Color: Rubra/Red Perineum Description: Intact, Minimal Bruising/Swelling Episiotomy/Laceration: None Bladder Status: Indwelling Catheter in Place Urinary Elimination: Indwelling Catheter - Exam General: Alert, Oriented HEENT: Pupils Equal Neck: Supple Lungs: Clear to Auscultation, Normal Respiratory Effort Cardiovascular: Regular Rate, Regular Rhythm GI/Abdominal Exam: Normal Bowel Sounds, Soft, Non-Tender, No Organomegaly, No Distention, No Abnormal Bruit, No Mass, Pelvis Stable Extremities: Normal Inspection, Normal Range of Motion, Non-Tender, No Pedal Edema, Normal Capillary Refill Skin: Warm, Dry, Intact Wound/Incisions: Healing Well Neurological: No New Focal Deficit Psy/Mental Status: Alert, Normal Affect, Normal Mood - Problem List & Annotations (1) complicated by pre-existing type 1 diabetes in third trimester SNOMED Code(s): 359968171, 725336826 Code(s): O24.013 - PRE-EXISTING TYPE 1 DIABETES, IN , THIRD TRIMESTER Status: Acute Current Visit: Yes (2) Previous delivery affecting SNOMED Code(s): 646863487 Code(s): O34.219 - MATERNAL CARE FOR UNSP TYPE SCAR FROM PREVIOUS DEL Status: Acute Current Visit: Yes (3) delivery delivered SNOMED Code(s): 025824858 Code(s): O82 - ENCOUNTER FOR DELIVERY WITHOUT INDICATION Status: Acute Current Visit: Yes - Problem List Review Problem List Initiated/Reviewed/Updated: Yes - My Orders Last 24 Hours: My Active Orders 03/18/17 09:00 FLUoxetine [PROzac] 40 mg PO DAILY 03/18/17 15:00 Ibuprofen [Motrin] 400 mg PO Q8H PRN - Assessment Assessment:: POD#2 after repeat , type I diabetes. Pump management with has provided new settings for pump. vitals stable hemoglobin stable. Her pain is well controlled with oral pain medications. She would like to go home today. - Plan Plan:: Continue insulin pump management per [facility] diabetes management. Discharge precautions reviewed.
[2017-03-19 10:19] VITALS: BP 112/77
== END 2017-03-19 12:00 | disposition home or self-care (01) | DRG 540 ==
LOC: MW.OB 04:45
PROVIDERS: ADMIT Obstetrics & Gynecology; ATTEND Obstetrics & Gynecology
PROC: 10D00Z1 Extraction of Products of Conception, Low, Open Approach (ICD-10-PCS; principal; 2017-03-17)
PROC: 0UT70ZZ Resection of Bilateral Fallopian Tubes, Open Approach (ICD-10-PCS; 2017-03-17)
DX: O36.63X0 Maternal care for excessive fetal growth, third trimester, not applicable or unspecified (principal); O40.3XX0 Polyhydramnios, third trimester, not applicable or unspecified; O24.02 Pre-existing type 1 diabetes mellitus, in childbirth; E10.9 Type 1 diabetes mellitus without complications; Z3A.38 38 weeks gestation of pregnancy; Z37.0 Single live birth; Z79.4 Long term (current) use of insulin; O34.211 Maternal care for low transverse scar from previous cesarean delivery; N85.8 Other specified noninflammatory disorders of uterus; Z96.41 Presence of insulin pump (external) (internal); Z88.1 Allergy status to other antibiotic agents
CPT/HCPCS: 01961; 36415; 59025; 80048; 82962; 85014; 85018; 85027; 86850; 86900; 86901; 88302; A9270-GY; J0690; J1100; J1200; J1815-GY; J1885; J2274; J2300; J2405; J2590; J7120

== ENCOUNTER 2019-02-09 06:55 | Day surgery (SDC) | payer BC ==
[~2019-02-09 06:55] MED LIST: Clindamycin Phosphate in D5W 900 MG in Premix Bag 1 BAG IV ONE; Lactated Ringers 1,000 ML IV SCH
[2019-02-09] MEDS ORDERED: Propofol 200 MG/20 ML SDV ONE (07:36)
[2019-02-09] MEDS ORDERED: Lidocaine 2% 5 ML SDV ONE (07:36)
[2019-02-09] MEDS ORDERED: fentaNYL 100 MCG/2 ML SDV ONE (07:36)
[2019-02-09] MEDS ORDERED: Midazolam 1 MG/ML 2 ML SDV ONE (07:36)
--- NOTE | 2019-02-09 07:51 | PCM.PREANE ---
Preanesthetic Assessment - Anesthesia/Transfusion/Family Hx Anesthesia History: Prior Anesthesia Without Reaction Other Type of Anesthesia Reaction Comment: BP dropped during last c/section Family History of Anesthesia Reaction: No Transfusion History: Prior Transfusion Without Reaction Intubation History: Unknown - Review of Systems General: No Symptoms Pulmonary: No Symptoms Cardiovascular: No Symptoms Gastrointestinal: No Symptoms Neurological: No Symptoms - Physical Assessment NPO Status Date: 02/08/19 NPO Status Time: 19:00 Vital Signs: Last Vital Signs Temp 98.4 F 02/09/19 07:00 Pulse 91 02/09/19 07:00 Resp 18 02/09/19 07:00 BP 110/73 02/09/19 07:00 Pulse Ox 99 02/09/19 07:00 Height: 5 ft 6.25 in Weight: 79.832 kg ASA Class: 2 Mental Status: Alert & Oriented x3 Airway Class: Mallampati = 2 Dentition: Reports: Normal Dentition, [place](s) ROM/Head Extension: Full Lungs: Clear to Auscultation Cardiovascular: Regular Rate, Regular Rhythm - Lab Values: Laboratory Last Values WBC 5.61 K/uL (4.0-11.0) 02/09/19 07:14 RBC 5.07 M/uL (4.30-5.90) 02/09/19 07:14 Hgb 14.1 g/dL (12.0-16.0) 02/09/19 07:14 Hct 42.8 % (36.0-46.0) 02/09/19 07:14 MCV 84.4 fL (80.0-98.0) 02/09/19 07:14 MCH 27.8 pg (27.0-32.0) 02/09/19 07:14 MCHC 32.9 g/dL (31.0-37.0) 02/09/19 07:14 RDW Std Deviation 42.8 fl (28.0-62.0) 02/09/19 07:14 RDW Coeff of Lavinia 14 % (11.0-15.0) 02/09/19 07:14 Plt Count 220 K/uL (150-400) 02/09/19 07:14 MPV 11.20 fL (7.40-12.00) 02/09/19 07:14 Nucleated RBC % 0.0 /100WBC 02/09/19 07:14 Nucleated RBCs # 0 K/uL 02/09/19 07:14 - Allergies Allergies/Adverse Reactions: Allergies Allergy/AdvReac Type Severity Reaction Status Date / Time amoxicillin [From Augmentin] Allergy Rash Verified 02/06/19 06:59 clavulanic acid Allergy Rash Verified 02/06/19 06:59 [From Augmentin] - Blood Blood Available: No - Anesthesia Plan Pre-Op Medication Ordered: None - Acknowledgements Anesthesia Type Planned: General Anesthesia Alternatives and Risks of Anesthesia Discussed w Pt/Guardian: Yes Pt/Guardian Understands and Agrees with Anesthesia Plan: Yes Additional Comments: PMH: IDDM on insulin pump plan: ga/lma PreAnesthesia Questionnaire HEENT History: Reports: Impaired Vision Other HEENT History: wears glasses Cardiovascular History: Reports: None Respiratory History: Reports: None Gastrointestinal History: Reports: Other (See Below) Other Gastrointestinal History: occasional heartburn Genitourinary History: Reports: None 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 History: Reports: , Spontaneous Musculoskeletal History: Reports: Fracture Other Musculoskeletal History: hx of fx arm and fx pinkie finger left hand Neurological History: Reports: Concussion Psychiatric History: Reports: Depression, PTSD Endocrine/Metabolic History: Reports: Diabetes, Type I, Hypothyroidism Hematologic History: Reports: Blood Transfusion(s) Immunologic History: Reports: None Oncologic (Cancer) History: Reports: None Dermatologic History: Reports: None - Past Surgical History Head Surgeries/Procedures: Reports: None HEENT Surgical History: Reports: Other (See Below) Other HEENT Surgeries/Procedures: permanent dental retainers Cardiovascular Surgical History: Reports: None Respiratory Surgical History: Reports: None GI Surgical History: Reports: None Female Surgical History: Reports: Section, Dilitation & Evacuation, Other (See Below) Other Female Surgeries/Procedures: flavia salpingectomy with last C/section Endocrine Surgical History: Reports: None Neurological Surgical History: Reports: None Musculoskeletal Surgical History: Reports: Other (See Below) Other Musculoskeletal Surgeries/Procedures:: left hand surgery Oncologic Surgical History: Reports: None Dermatological Surgical History: Reports: None - SUBSTANCE USE Smoking Status *Q: Former Smoker Tobacco Use Within Last Twelve Months: No - HOME MEDS Home Medications: Home Meds FLUoxetine [PROzac] 40 mg PO DAILY 09/30/16 [History] Insulin Lispro [Humalog] 1 dose .ROUTE ASDIRECTED 09/30/16 [History] Acetaminophen [Tylenol] 2 tab PO ASDIRECTED PRN 02/06/19 [History] Levothyroxine 112 mcg PO DAILY 02/06/19 [History] - CURRENT (IN HOUSE) MEDS Current Meds: Current Medications Lactated Ringer's (Ringers, Lactated) 1,000 mls @ 100 mls/hr IV ASDIRECTED MARY Last Admin: 02/09/19 07:15 Dose: 100 mls/hr Discontinued Medications Fentanyl (Sublimaze) Confirm Administered Dose 100 mcg .ROUTE .STK-MED ONE Stop: 02/09/19 07:37 Clindamycin Phosphate 900 mg/ (Premix) 50 mls @ 100 mls/hr IV ONETIME ONE Stop: 02/09/19 06:29 Last Admin: 02/09/19 07:24 Dose: 100 mls/hr Lidocaine (Xylocaine-Mpf 2%) Confirm Administered Dose 5 ml .ROUTE .STK-MED ONE Stop: 02/09/19 07:37 Midazolam HCl (Versed 1 Mg/Ml) Confirm Administered Dose 2 mg .ROUTE .STK-MED ONE Stop: 02/09/19 07:37 Propofol (Diprivan 20 Ml) Confirm Administered Dose 200 mg .ROUTE .STK-MED ONE Stop: 02/09/19 07:37
[2019-02-09] MEDS ORDERED: Ketorolac 30 MG/ML SDV ONE (08:17)
[2019-02-09] MEDS ORDERED: Ondansetron 4 MG/2 ML SDV ONE (08:17)
--- NOTE | 2019-02-09 08:32 | PCM.OPNOTE ---
- General Post-Op/Procedure Note Date of Surgery/Procedure: 02/09/19 Operative Procedure(s): diagnostic hysteroscopy, D&C, thermal endometrial ablation. Findings: Uterus retroverted sounds to 9 cm, cervix 4 cm. Bilateral tubal ostia were identified. The endometrial cavity appeared normal. Pre Op Diagnosis: menorrhagia Post-Op Diagnosis: Same Anesthesia Technique: General LMA Primary Surgeon: Sonya Shah Anesthesia Provider: Cameron Solo [employer] Flow Team Leader: Vida Sandoval Pathology: endometrial curettings Fluid Replacement, Intraop: 600 EBL in mLs: 10 Complications: None Known Condition: Good
[2019-02-09] MEDS ORDERED: Acetaminophen 1,000 MG in Premix Bag 1 BAG IV ONE (09:02)
[2019-02-09] MEDS: fentaNYL 100 MCG/2 ML SDV IVPUSH PRN ×2 (09:13→09:19)
--- NOTE | 2019-02-09 09:27 | PCM.POSTAN ---
POST ANESTHESIA ASSESSMENT - MENTAL STATUS Mental Status: Alert - VITAL SIGNS Vital Signs: Last Vital Signs Temp 36.6 C 02/09/19 08:32 Pulse 89 02/09/19 09:16 Resp 11 L 02/09/19 09:16 BP 105/71 02/09/19 09:16 Pulse Ox 97 02/09/19 09:16 - RESPIRATORY Respiratory Status: Respiratory Rate WNL - CARDIOVASCULAR CV Status: Pulse Rate WNL - GASTROINTESTINAL GI Status: No Symptoms - POST OP HYDRATION Hydration Status: Adequate & Stable
[2019-02-09 09:38] VITALS: BP 104/71; PULSE 96
--- NOTE | 2019-02-09 09:57 | PCM48HPAN ---
Post Anesthesia Note - EVALUATION WITHIN 48HRS OF ANESTHETIC Vital Signs in Normal Range: Yes Patient Participated in Evaluation: Yes Respiratory Function Stable: Yes Airway Patent: Yes Cardiovascular Function Stable: Yes Hydration Status Stable: Yes Pain Control Satisfactory: Yes Nausea and Vomiting Control Satisfactory: Yes Mental Status Recovered: Yes Vital Signs: Last Vital Signs Temp 97.5 F 02/09/19 09:29 Pulse 96 02/09/19 09:29 Resp 16 02/09/19 09:29 BP 104/71 02/09/19 09:29 Pulse Ox 99 02/09/19 09:29
--- NOTE | 2019-02-09 13:00 | OR ---
SURGEON: Sonya Shah M.D. DATE OF PROCEDURE: 02/09/2019 PREOPERATIVE DIAGNOSIS: Menorrhagia. POSTOPERATIVE DIAGNOSIS: Menorrhagia. PROCEDURE PERFORMED: Diagnostic hysteroscopy, D and C, and thermal endometrial ablation with Radha system. PRIMARY SURGEON: Sonya Shah M.D. ANESTHESIA: General LMA. ESTIMATED BLOOD LOSS: Less than 10 mL. FINDINGS: Uterus retroverted, sounded to 9 cm. The cervix sounds to 4 cm. Upon hysteroscopy, there was good visualization of the entire cavity. Bilateral tubal ostia were identified. There were no lesions within the cavity. The endometrial cavity appeared normal. COMPLICATIONS: None known. DISPOSITION: Stable to recovery. IV FLUIDS: 600 mL of crystalloid. BRIEF HISTORY: This is a 33-year-old female. She presents with a history of menorrhagia unresponsive to hormonal therapy including contraceptive pills, Mirena IUD, and presents for thermal endometrial ablation. She has completed childbearing. She has had a prior bilateral salpingectomy. She is a type 1 diabetic. She is allergic to penicillin and she had an endometrial biopsy in the clinic that was benign with normal ultrasound and presents for endometrial ablation with Radha system. Risks were discussed including bleeding, infection, uterine perforation with injury to surrounding organs, risk of thromboembolic event, risk of anesthesia, as well as understanding that her uterus can no longer support a after an endometrial ablation. She has had bilateral salpingectomy, but she clearly understands under no circumstances should she become again by any means. With all this information, she does consent to the procedure. DESCRIPTION OF PROCEDURE: With the patient in dorsal lithotomy position, under general LMA anesthesia, the perineum and vagina were prepped with Betadine and draped in usual fashion for vaginal surgery. Bladder was drained. SCDs were in place. She had received 900 mg of clindamycin IV and an appropriate time-out was held. Bimanual examination was performed with findings of a retroverted 8-week size uterus. The speculum was placed in the vagina. The posterior lip of the cervix was grasped with an Allis clamp. The cervix was gently dilated to 5 mm Hegar dilator. The uterus had sounded to 9 cm, cervix sounded to 4 cm, leaving a 5 cm uterine depth for the fundus. The hysteroscope was placed into the uterine cavity and with pressure on the bag of saline, there was excellent visualization of the uterine cavity. Bilateral tubal ostia were identified. There were no lesions, therefore, the hysteroscopy was completed. Previously, endometrial biopsy and ECC had been performed in the clinic and were benign and now sharp curettage of the endometrium only was performed using a sharp curette with a moderate amount of tissue obtained. The Radha system was then prepared and again straightening the cervix and the angle with Allis clamp on the posterior cervix, the depth for the uterine fundus was set at 5 cm. The Radha machine arms were retracted and placed to the uterine fundus. The button was then released. The arms were expanded. The balloon was filled. Tests were passed and the 2-minute treatment cycle was performed. The balloon was then desufflated. The arms were retracted. The device was removed. All of the instruments were removed from the vagina. Final sponge, needle, and instrument counts were reported as correct. There were no known complications. The patient was transferred to recovery in good condition. MADI / NENA /[id number]
== END 2019-02-09 10:00 | disposition home or self-care (01) ==
LOC: MW.SDS 06:55
PROVIDERS: ATTEND Obstetrics & Gynecology
DX: N92.0 Excessive and frequent menstruation with regular cycle (principal); E10.9 Type 1 diabetes mellitus without complications; E03.9 Hypothyroidism, unspecified; Z88.0 Allergy status to penicillin; Z87.891 Personal history of nicotine dependence; Z79.4 Long term (current) use of insulin; Z79.899 Other long term (current) drug therapy
CPT/HCPCS: 36415; 58563; 82962; 84703; 85027; J0131; J1885; J2001; J2250; J2405; J2704; J3010; J3490; J7120; 88305

== ENCOUNTER 2019-05-06 13:09 | Emergency (ER) | payer BC ==
[2019-05-06 13:23] VITALS: BP 117/74; PULSE 91
--- NOTE | 2019-05-06 13:27 | EDM.PDOC ---
ED HPI GENERAL MEDICAL PROBLEM - General Chief Complaint: General Stated Complaint: FLU SYMPTOMS Time Seen by Provider: 05/06/19 13:12 Source of Information: Reports: Patient History Limitations: Reports: No Limitations - History of Present Illness INITIAL COMMENTS - FREE TEXT/NARRATIVE: HISTORY AND PHYSICAL: History of present illness: Patient is a 33-year-old female who presents to the emergency room today with complaints of sinus pressure, sore throat, cough and elevated blood sugar since yesterday. Patient is a type I diabetic and does monitor her blood sugars routinely. She states she had been running greater than 140s but believes she has her sugars better controlled after adjusting her settings. Patient denies any fever, chills, change in vision, syncope or near syncope. Denies any chest pain, back pain, shortness of breath. Denies any GI or symptoms. Patient has been eating and drinking appropriately. Review of systems: As per history of present illness and below otherwise all systems reviewed and negative. Past medical history: As per history of present illness and as reviewed below otherwise noncontributory. Surgical history: As per history of present illness and as reviewed below otherwise noncontributory. Social history: See social history for further information Family history: As per history of present illness and as reviewed below otherwise noncontributory. Physical exam: General: Well-developed and well-nourished 33-year-old female. Alert and oriented. Nontoxic-appearing and in no acute distress. HEENT: Atraumatic, normocephalic, pupils equal and reactive bilaterally, negative for conjunctival pallor or scleral icterus, mucous membranes moist, TMs normal bilaterally, bilateral maxillary sinus tenderness with palpation, throat clear, neck supple, nontender, trachea midline. No drooling or trismus noted. No meningeal signs. No hot potato voice noted. Lungs: Clear to auscultation, breath sounds equal bilaterally, chest nontender. Heart: S1S2, regular rate and rhythm without overt murmur Abdomen: Soft, nondistended, nontender. Negative for masses or hepatosplenomegaly. Negative for costovertebral tenderness. Skin: Intact, warm, dry. No lesions or rashes noted. Extremities: Atraumatic, moves all extremities per self without difficulty or deficits, negative for cords or calf pain. Neurovascular unremarkable. Neuro: Awake, alert, oriented. Cranial nerves II through XII unremarkable. Cerebellum unremarkable. Motor and sensory unremarkable throughout. Exam nonfocal. Notes: Blood sugar here is 93. Patient states that she has been running 140s or greater at home. Negative flu. Supportive care measures were reviewed and discussed. Voices understanding and is agreeable to plan of care. Denies any further questions or concerns at this time. Diagnostics: Influenza Therapeutics: None Prescription: Doxycycline Tylenol w/ Cod (#4oz) Impression: Sinusitis Plan: 1. Take your medication as directed. Good handwashing and contact precautions as we discussed. 2. Continue to monitor your blood sugars. You may take an [id number] decongestant for the sinus pressure. 3. Tylenol and or ibuprofen as needed for pain management. Tylenol with codeine for moderate to severe pain. Do not take this medication while driving or needing to be functioning outside of the house that is may cause drowsiness. If you are taking this do not take any additional Tylenol, max of 4 g/day. 4. Follow-up with your primary care provider in the next 1-2 days. Return to the ED as needed and as discussed. Definitive disposition and diagnosis as appropriate pending reevaluation and review of above. generalized Pain Score (Numeric/FACES): 5 - Related Data Allergies Allergy/AdvReac Type Severity Reaction Status Date / Time amoxicillin [From Augmentin] Allergy Rash Verified 05/06/19 13:20 clavulanic acid Allergy Rash Verified 05/06/19 13:20 [From Augmentin] Penicillins Allergy Rash Verified 05/06/19 13:20 Home Meds: Home Meds FLUoxetine [PROzac] 20 mg PO DAILY 09/30/16 [History] Insulin Lispro [Humalog] 1 dose .ROUTE ASDIRECTED 09/30/16 [History] Acetaminophen [Tylenol] 2 tab PO ASDIRECTED PRN 02/06/19 [History] Levothyroxine 112 mcg PO DAILY 02/06/19 [History] Acetaminophen/Codeine [Tylenol/Codeine 120-12 MG/5 ML] 10 ml PO Q6HR PRN #4 oz 05/06/19 [Rx] Doxycycline [Vibramycin] 100 mg PO BID 5 Days #10 tab 05/06/19 [Rx] Past Medical History HEENT History: Reports: Impaired Vision Other HEENT History: wears glasses Cardiovascular History: Reports: None Respiratory History: Reports: None Gastrointestinal History: Reports: Other (See Below) Other Gastrointestinal History: occasional heartburn Genitourinary History: Reports: None 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: , Spontaneous Musculoskeletal History: Reports: Fracture Other Musculoskeletal History: hx of fx arm and fx pinkie finger left hand Neurological History: Reports: Concussion Psychiatric History: Reports: Depression, PTSD Endocrine/Metabolic History: Reports: Diabetes, Type I, Hypothyroidism Hematologic History: Reports: Blood Transfusion(s) Immunologic History: Reports: None Oncologic (Cancer) History: Reports: None Dermatologic History: Reports: None - Infectious Disease History Infectious Disease History: Reports: Chicken Pox - Past Surgical History Head Surgeries/Procedures: Reports: None HEENT Surgical History: Reports: Other (See Below) Other HEENT Surgeries/Procedures: permanent dental retainers Cardiovascular Surgical History: Reports: None Respiratory Surgical History: Reports: None GI Surgical History: Reports: None Female Surgical History: Reports: Section, Dilitation & Evacuation, Other (See Below) Other Female Surgeries/Procedures: flavia salpingectomy with last C/section Endocrine Surgical History: Reports: None Neurological Surgical History: Reports: None Musculoskeletal Surgical History: Reports: Other (See Below) Other Musculoskeletal Surgeries/Procedures:: left hand surgery Oncologic Surgical History: Reports: None Dermatological Surgical History: Reports: None Social & Family History - Family History Cardiac: Reports: High Cholesterol, Hypertension, [place] OBGYN: Reports: Musculoskeletal: Reports: Osteoporosis Neurological: Reports: Alzheimers Disease, Dementia Oncologic: Reports: Cervix - Tobacco Use Smoking Status *Q: Never Smoker - Caffeine Use Caffeine Use: Reports: Soda Caffeine Use Comment: 1 soda per day - Recreational Drug Use Recreational Drug Use: No ED ROS GENERAL - Review of Systems Review Of Systems: Comprehensive ROS is negative, except as noted in HPI. ED EXAM, GENERAL - Physical Exam Exam: See Below (See dictation) Course - Vital Signs Last Recorded V/S: Last Vital Signs Temp 98 F 05/06/19 13:17 Pulse 91 05/06/19 13:17 Resp 18 05/06/19 13:17 BP 117/74 05/06/19 13:17 Pulse Ox 96 05/06/19 13:17 - Orders/Labs/Meds Labs: Laboratory Tests 05/06/19 Range/Units 13:23 POC Glucose 93 (60-110) mg/dL Departure - Departure Time of Disposition: 13:56 Disposition: Home, Self-Care 01 Clinical Impression: Sinusitis Qualifiers: Sinusitis location: maxillary Chronicity: acute Recurrence: non-recurrent Qualified Code(s): J01.00 - Acute maxillary sinusitis, unspecified - Discharge Information Prescriptions: Acetaminophen/Codeine [Tylenol/Codeine 120-12 MG/5 ML] 10 ml PO Q6HR PRN #4 oz PRN Reason: Pain Doxycycline [Vibramycin] 100 mg PO BID 5 Days #10 tab Instructions: Sinusitis, Adult, [id number] Referrals: PCP,None [Primary Care Provider] - Forms: ED Department Discharge Additional Instructions: The following information is given to patients seen in the emergency department who are being discharged to home. This information is to outline your options for follow-up care. We provide all patients seen in our emergency department with a follow-up referral. The need for follow-up, as well as the timing and circumstances, are variable depending upon the specifics of your emergency department visit. If you don't have a primary care physician on staff, we will provide you with a referral. We always advise you to contact your personal physician following an emergency department visit to inform them of the circumstance of the visit and for follow-up with them and/or the need for any referrals to a consulting specialist. The emergency department will also refer you to a specialist when appropriate. This referral assures that you have the opportunity for follow-up care with a specialist. All of these measure are taken in an effort to provide you with optimal care, which includes your follow-up. Under all circumstances we always encourage you to contact your private physician who remains a resource for coordinating your care. When calling for follow-up care, please make the office aware that this follow-up is from your recent emergency room visit. If for any reason you are refused follow-up, please contact the [facility] Emergency Department at and asked to speak to the emergency department charge nurse. [facility] [address] [place] [id number] [address] 1. Take your medication as directed. Good handwashing and contact precautions as we discussed. 2. Continue to monitor your blood sugars. You may take an [id number]-[id number] decongestant for the sinus pressure. 3. Tylenol and or ibuprofen as needed for pain management. Tylenol with codeine for moderate to severe pain. Do not take this medication while driving or needing to be functioning outside of the house that is may cause drowsiness. If you are taking this do not take any additional Tylenol, max of 4 g/day. 4. Follow-up with your primary care provider in the next 1-2 days. Return to the ED as needed and as discussed. Sepsis Event Note - Evaluation Sepsis Screening Result: No Definite Risk - Focused Exam Vital Signs: Vital Signs Temp Pulse Resp BP Pulse Ox 05/06/19 13:17 98 F 91 18 117/74 96 Date Exam was Performed: 05/06/19 Time Exam was Performed: 13:54
== END 2019-05-06 14:05 | disposition home or self-care (01) ==
LOC: MW.ED 13:09
DX: J01.00 Acute maxillary sinusitis, unspecified (principal); E10.9 Type 1 diabetes mellitus without complications; Z88.1 Allergy status to other antibiotic agents; Z88.0 Allergy status to penicillin; Z88.8 Allergy status to other drugs, medicaments and biological substances; Z79.899 Other long term (current) drug therapy
CPT/HCPCS: 82962; 87804; 99283

== ENCOUNTER 2023-02-28 13:41 | Emergency (ER) | payer OTHER ==
[2023-02-28 14:48] VITALS: BP 127/82; PULSE 92
== END 2023-02-28 14:47 | disposition home or self-care (01) ==
LOC: MW.ED 13:41
DX: L03.113 Cellulitis of right upper limb (principal); T85.72XA Infection and inflammatory reaction due to insulin pump, initial encounter; E10.9 Type 1 diabetes mellitus without complications; E03.9 Hypothyroidism, unspecified; Z88.0 Allergy status to penicillin; Z88.8 Allergy status to other drugs, medicaments and biological substances; Z79.4 Long term (current) use of insulin; Z79.899 Other long term (current) drug therapy
CPT/HCPCS: 99283